=== PATIENT | female | born 1955 | race Caucasian/White ===

== ENCOUNTER 2020-07-18 07:17 | Day surgery (SDC) | payer BC ==
--- NOTE | 2020-07-17 06:09 | EKG ---
Test Date: 2020-07-16 Test Time: 10:20:13 [employer]: ALINA MEASUREMENT RESULTS: Intervals: Rate: 55 LA: 176 QRSD: 86 QT: 472 QTc: 451 [place]: P: 42 LA: 176 QRS: 67 T: 79 INTERPRETIVE STATEMENTS: Sinus bradycardia Nonspecific ST abnormality Abnormal ECG No previous ECG available for comparison Electronically Signed On 07-17-20 06:07:26 CLINICAL DOCUMENTATION CONSULTANT by Aj Pillai
[2020-07-18] MEDS: Ringers Lactate 1,000 ML IV ONE (07:52)
[2020-07-18] MEDS ORDERED: MIDAZOLAM HCL 2 MG/2 ML INJ ONE (08:10)
[2020-07-18] MEDS ORDERED: propofoL 200 MG/20 ML VIAL IV ONE (08:10)
[2020-07-18] MEDS ORDERED: ROCURONIUM 50 MG/5 ML VIAL IV ONE (08:10)
[2020-07-18] MEDS ORDERED: dexAMETHasone 10 MG/ML VIAL ONE (08:10)
[2020-07-18] MEDS ORDERED: FENTANYL CITR 250 MCG/5 ML ONE (08:10)
[2020-07-18] MEDS ORDERED: LIDOCAINE 2% MPF 5 ML VIAL ONE (08:10)
[2020-07-18] MEDS ORDERED: OXYMETAZOLINE HCL 0.05% 15ML NAS ONE ×2 (08:21→10:39)
[2020-07-18] MEDS ORDERED: NA CHLORIDE 0.9% 500 ML ONE (08:22)
[2020-07-18] MEDS ORDERED: BUPIVACA 0.5%/EPI 0.0005%/PF 10 ML VIAL ONE (08:31)
[2020-07-18] MEDS ORDERED: EPHEDRINE SULF 50 MG/ML VIAL ONE (09:25)
[2020-07-18] MEDS: LIDOCAINE 1% W/EPI 1:100,000 MDV 20 ML VIAL ONE ×2 (09:30→11:34)
[2020-07-18] MEDS ORDERED: GLYCOPYRROLATE 0.2 MG/ML SYR ONE (09:34)
[2020-07-18] MEDS ORDERED: Phenylephrine HCl 10 MG/ML 1 ML VIAL ONE (11:21)
--- NOTE | 2020-07-18 12:09 | P.BOP ---
Preoperative diagnosis: CRS Postoperative diagnosis: same Primary procedure: B NE with frontal, ant ethmoid, max and left sphenoid with tissue removal Member Of Technical Staff: NONE,NONE Estimated blood loss: 100ml Specimen: sinus contents Anesthesia: General Complications: None Implants: B Propel contour to FR Fluids & blood products: crystalloid 1400ml Transferred to: Recovery Room Condition: Good
[2020-07-18] MEDS ORDERED: KETOROLAC 30 MG/ML INJ ONE (12:11)
[2020-07-18] MEDS ORDERED: TRAMADOL 37.5mg/APAP 325mg PER TAB ONE (14:20)
[2020-07-18 14:33] VITALS: TEMP 97; O2SAT 100
[2020-07-18 14:34] VITALS: BP 108/68
--- NOTE | 2020-07-19 01:03 | OP ---
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 Procedures: Nasal endoscopy with bilateral frontal sinusotomy, bilateral anterior ethmoidectomy, sofía ateral maxillary antrostomy, left sphenoidotomy with tissue removal, extradural CT intraoperative aba igation. Indication For Procedure: Ms. Dhaval Mendoza presented with complaints of chronic sinusitis including fr ontal pain and pressure with chronic nasal drainage. She had previously undergone balloon sinuplasty twice with some additional sinus surgery outside of the local area by an unknown surgeon. She under went nasal culture, which demonstrated 2 species of bacteria and 2 species of mold. She was treated with antibiotic therapy, saline irrigations, and intranasal steroid spray, and her post treatment CT scan demonstrated opacification of the anterior ethmoid cells including those leading to the frontal recess with partial opacification of the frontal sinus. There was also partial opacification of the left sphenoid sinus. Blood Loss: 100 mL. 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 The sphenoid had an unusual finding. Upon entering the sphenoid, there appeared to be a mucosal wall similar to a cyst without significant mucus or fungal debris or purulence. Description Of Procedure: The patient was brought to the operating room. She was placed under gener al anesthesia via oral endotracheal tube. The head of bed was turned 90 degrees. The nasal hairs we re trimmed using scissors and the nasal cavity was packed with Afrin-soaked pledgets. After time for effect, these were removed. The [employer] navigation system was loaded with the patient's post treatment preoperative CT scan. The registration device was placed on the patient's forehead in acc ordance with flame annealing machine operator's instructions. The device was registered using surface tracing starting f rom the base of the columella over the bridge of the nose to the dorsum across the bilateral forehead and quaker and across the mid cheek, taking care to avoid areas of distortion due to the patient's f danya covering during CT scan, which resulted in soft tissue deformity around the upper cheek. Accurac y was felt to be very good except at the very tip of the nose, which may have been distorted by the p resence of the patient's face mask. This was not felt to be likely affecting the overall course of n avigation. The straight navigation suction was confirmed in regard to accuracy, including the base o f the columella, the radix, and the bilateral medial canthi, and registration was felt to be very goo d. The zero degree endoscope was used to perform a nasal endoscopy and the left sphenoid was address ed first. The middle turbinate was slightly lateralized in order to obtain better access to the sphe noethmoid recess. Careful probing along the face of the sphenoid allowed me to enter through the exi sting natural ostium. The navigation system was attached to and calibrated to the microdebrider, whi ch was then used to carefully enlarge the ostium. When looking with a camera through the ostium, the re was an abnormal appearance to the posterior, what was thought initially to be the posterior wall. With gentle suctioning, it was noted there was a curtain like area of mucosa, which was soft and eas nicole punctured using the suction. There was minimal mucus or debris or pus noted within the sphenoid. The area was packed with Afrin-soaked pledgets intermittently as needed to provide hemostasis. Onc e the sphenoid os was slightly enlarged, I was able to use a straight and 45-degree Blakesley in orde r to carefully remove this curtain like mucosal structure. On intraoperative review of the CT, there is a faint suggestion of a thin mucosal sheet, which was not noted prior to surgery due to the subtl ety of this finding. Once removed, the 30 degree endoscope was passed through the sphenoid os and us ed to carefully examine the floor of the sinus, which appeared to be clear from any type of debris, f ungus, or other abnormality. Attention was then turned to the right side. The patient had previousl y undergone significant resection of the middle turbinates altering the overall appearance of the rig ht nasal cavity and sinuses. Due to the patient's complaint of drainage and on careful review of the CT, it was noted there was a small accessory ostium just inferior and posterior to the previously di lated natural ostium. My concern is this anatomic confirmation was resulting in mucus recirculation and postnasal drainage and therefore a maxillary antrostomy was indicated. The uncinate process was removed using a backbiter and 90-degree Blakesley. A 90 degree Blakesley in conjunction with the 30 and 70 degree endoscope was used to dissect between the accessory os and the natural ostium to provid e continuity without any soft tissue band or scar band between these 2 structures to prevent mucus re circulation. Photo documentation of this area was obtained after completion of dissection. The tree ent was noted to have a prominent opacified cell along the anterior lamina of the orbit, which had be en marked as target #1 on preoperative planning. The straight 45 and 90-degree Blakesley's were used under 0, 30, and 70 degree endoscopic guidance to carefully dissect in the area of the anterior ethm oid and the image guidance system was used to track and confirm that this area along the lamina was a dequately opened and dissected. During dissection, there was some polypoid appearing mucosa, but no mature polyps, no marie purulence, and nothing suggesting allergic fungal or other fungal component t o the patient's condition. The anterior ethmoid cells were carefully dissected under 70 degree endos cope guidance using the large and small front to back and twth-ir-vrbf Giraffe forceps until the sinu s was well opened. The curved navigation suction was registered with the image guidance system and u sed to help define the location and track along the frontal recess. The mucosa within the frontal re cess was edematous, but complete removal was avoided to reduce the chance of stenosis. After complet ion of dissection of this area, a Propel steroid-eluting stent contour variety was placed under endos copic guidance into the frontal recess in order to help reduce postoperative scarring and swelling. There was moderate bleeding in the ethmoid area, which was controlled with packing. After removal of nasal pledgets, the area was packed with a xerogel dissolvable nasal dressings x2 in order to obtain hemostasis. Attention was then turned back to the left side where similar procedures were performed . The uncinate process was removed using a backbiter and 90-degree Blakesley. Due to the presence o f an accessory ostium, the 90-degree Blakesley was used to dissect and remove tissue in order to ensu re the natural ostium was in continuity with the accessory os to reduce the risk of mucus recirculati on. The anterior ethmoid cells were dissected using a curette and bony fragments removed using a str aight and 45-degree Blakesley. A second target that isolated opacified ethmoid cell was marked as ta rget too and the image guidance system was used to ensure that this area was well and completely open ed. The dissection was then carried up toward the frontal recess under the guidance of the [employer] na vigation system. The frontal sinus was dissected and edematous and polypoid mucosa was removed in or [place] to provide adequate drainage. Anterior dissection was limited partially by a prominent frontal b eak. After adequate dissection, a Propel contour steroid-eluting stent was placed within the frontal recess and the ethmoid cavity was packed with xerogel to aid in hemostasis. The nasal cavity was th oroughly suctioned and the patient was returned to care of anesthesia for awakening and extubation, w hich proceeded without complication and the patient was transported to the recovery room in stable co ndition. Complications: None. Disposition: The patient will be discharged home later today in the care of her family and follow up with Dr. Hansen in 10 days for evaluation of healing. SHAHID/NANCY Voice ID: [id number] Report ID: [id number]
== END 2020-07-18 13:55 | disposition home health service (06) ==
LOC: OR 07:17
PROVIDERS: ATTEND Otolaryngology
PROC: 099X8ZZ Drainage of Left Sphenoid Sinus, Via Natural or Artificial Opening Endoscopic (ICD-10-PCS; 2020-07-18)
PROC: 099Q8ZZ Drainage of Right Maxillary Sinus, Via Natural or Artificial Opening Endoscopic (ICD-10-PCS; 2020-07-18)
PROC: 099R8ZZ Drainage of Left Maxillary Sinus, Via Natural or Artificial Opening Endoscopic (ICD-10-PCS; 2020-07-18)
PROC: 099S8ZZ Drainage of Right Frontal Sinus, Via Natural or Artificial Opening Endoscopic (ICD-10-PCS; 2020-07-18)
PROC: 099T8ZZ Drainage of Left Frontal Sinus, Via Natural or Artificial Opening Endoscopic (ICD-10-PCS; 2020-07-18)
PROC: 099U8ZZ Drainage of Right Ethmoid Sinus, Via Natural or Artificial Opening Endoscopic (ICD-10-PCS; 2020-07-18)
PROC: 099V8ZZ Drainage of Left Ethmoid Sinus, Via Natural or Artificial Opening Endoscopic (ICD-10-PCS; principal; 2020-07-18 09:00)
DX: J32.8 Other chronic sinusitis (principal); Z20.828 Contact with and (suspected) exposure to other viral communicable diseases; I10 Essential (primary) hypertension; Z86.73 Personal history of transient ischemic attack (TIA), and cerebral infarction without residual deficits; F41.9 Anxiety disorder, unspecified; E03.9 Hypothyroidism, unspecified
CPT/HCPCS: 93005; 88312; 88305; 88311; 31276; 31254; 31267; 31288; U0002; J2704; J2370; J2250; J3010; J1100; J7120; J7040; 88304